=== PATIENT | male | born 2000 | race Two or more races ===

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

== ENCOUNTER 2021-06-28 00:55 | Emergency (ER) | payer MEDICAID ==
[~2021-06-28] VITALS: Ht 180.3 cm; Wt 97.5 kg
[2021-06-28] MEDS ORDERED: KETOROLAC TROMETH 30 MG/ML 1ML VIAL IM ONE (05:30)
[2021-06-28] MEDS ORDERED: IBUP800T27 PO (05:36)
[2021-06-28 05:39] VITALS: BP 131/86
== END 2021-06-28 06:43 | disposition home or self-care (01) ==
LOC: ER 00:55
DX: M79.674 Pain in right toe(s) (principal); Z79.1 Long term (current) use of non-steroidal anti-inflammatories (NSAID); W22.8XXA Striking against or struck by other objects, initial encounter; Y93.89 Activity, other specified; Y92.89 Other specified places as the place of occurrence of the external cause; Y99.8 Other external cause status
CPT/HCPCS: 73630; 96372; 99283; J1885

== ENCOUNTER 2021-11-26 21:01 | Emergency (ER) | payer MEDICAID ==
[~2021-11-26] VITALS: Ht 182.9 cm; Wt 93.6 kg
[~2021-11-26 21:01] MED LIST: IBUP800T27 PO
[2021-11-26 22:17] VITALS: BP 128/82
[2021-11-26] MEDS ORDERED: PROM1SOL4 PO (23:00)
[2021-11-26] MEDS ORDERED: IBUP800T26 PO (23:00)
[2021-11-26] MEDS ORDERED: ALBUAER3 IN (23:00)
== END 2021-11-26 23:04 | disposition home or self-care (01) ==
LOC: ER 21:01
DX: U07.1 COVID-19 (principal); Z79.1 Long term (current) use of non-steroidal anti-inflammatories (NSAID)
CPT/HCPCS: 36415

== ENCOUNTER 2022-03-16 17:45 | Emergency (ER) | payer MEDICAID, OTHER ==
[~2022-03-16] VITALS: Ht 180.3 cm; Wt 103.5 kg
[~2022-03-16 17:45] MED LIST changes: +ALBUAER3 IN; +IBUP800T26 PO; +PROM1SOL4 PO
[2022-03-16 18:37] VITALS: BP 130/75
[2022-03-16 19:32] LABS: Basophils # (auto) 0.1 10 ^3/uL (0-0.2); Basophils % (auto) 0.8 % (0.0-2.0); Eosinophils # (auto) 0.1 10 ^3/uL (0-0.8); Eosinophils % (auto) 1.4 % (0.0-7.0); Hematocrit 44.3 % (41.0-53.0); Hemoglobin 14.8 g/dL (13.5-17.5); Lymphocytes # (auto) 2.6 10 ^3/uL (0.4-5.4); Lymphocytes % (auto) 31.4 % (10.0-50.0); Mean Corpuscular Hemoglobin 28.5 pg (28.0-32.0); Mean Corpuscular Hgb Conc. 33.4 g/dL (32.0-36.0); Mean Corpuscular Volume 85.3 fL (80.0-100.0); Monocytes # (auto) 0.7 10 ^3/uL (0-1.3); Monocytes % (auto) 7.8 % (0.0-12.0); Neutrophils # (auto) 4.9 10 ^3/uL (1.6-8.6); Neutrophils % (auto) 58.6 % (37.0-80.0); Nucleated Red Blood Cells % 0.1 %; Red Cell Distribution Width 14.7 % (11.8-14.3); White Blood Cell 8.4 10^3/uL (4.4-10.8)
[2022-03-16 19:33] LABS: Urine Bacteria NONE SEEN /hpf (None Seen); Urine Blood Negative /uL (Negative); Urine Mucus FEW (None Seen); Urine Specific Gravity 1.023 (1.001-1.035); Urine WBC <1 /hpf (0 - 3)
[2022-03-16 20:06] LABS: Albumin 4.6 g/dL (3.4-5.0); BUN/Creatinine Ratio 11.1; Calcium 9.5 mg/dL (8.5-10.1); Potassium 3.9 mmol/L (3.5-5.1)
[2022-03-16 20:09] LABS: Bilirubin, Total 0.5 mg/dL (0.2-1.0); Total Protein 8.1 g/dL (6.4-8.2)
[2022-03-16] MEDS ORDERED: ACETAMINOPHEN 500 MG TAB PO ONE (20:45)
== END 2022-03-16 20:58 | disposition home or self-care (01) ==
LOC: ER 17:45
DX: K31.4 Gastric diverticulum (principal); R10.31 Right lower quadrant pain; Z79.899 Other long term (current) drug therapy
CPT/HCPCS: 36415; 74176; 80053; 81001; 83690; 85025; 87086

== ENCOUNTER 2022-06-23 20:23 | Emergency (ER) | payer MEDICAID ==
[~2022-06-23] VITALS: Ht 180.3 cm; Wt 100.0 kg
[2022-06-23 20:54] LABS: Basophils # (auto) 0.1 10 ^3/uL (0-0.2); Basophils % (auto) 0.8 % (0.0-2.0); Eosinophils # (auto) 0.1 10 ^3/uL (0-0.8); Eosinophils % (auto) 1.1 % (0.0-7.0); Hematocrit 44.8 % (41.0-53.0); Hemoglobin 15.1 g/dL (13.5-17.5); Lymphocytes # (auto) 2.4 10 ^3/uL (0.4-5.4); Lymphocytes % (auto) 30.7 % (10.0-50.0); Mean Corpuscular Hemoglobin 28.6 pg (28.0-32.0); Mean Corpuscular Hgb Conc. 33.6 g/dL (32.0-36.0); Mean Corpuscular Volume 85.1 fL (80.0-100.0); Monocytes # (auto) 0.6 10 ^3/uL (0-1.3); Monocytes % (auto) 8.1 % (0.0-12.0); Neutrophils # (auto) 4.6 10 ^3/uL (1.6-8.6); Neutrophils % (auto) 59.3 % (37.0-80.0); Nucleated Red Blood Cells % 0.3 %; Red Blood Cells 5.26 10^6/uL (4.5-5.90); Red Cell Distribution Width 14.5 % (11.8-14.3); White Blood Cell 7.7 10^3/uL (4.4-10.8)
[2022-06-23 21:23] LABS: Albumin 4.3 g/dL (3.4-5.0); Calcium 9.5 mg/dL (8.5-10.1); Potassium 3.8 mmol/L (3.5-5.1)
[2022-06-23 21:26] LABS: BUN/Creatinine Ratio 13.4; Bilirubin, Total 0.4 mg/dL (0.2-1.0); Total Protein 8.1 g/dL (6.4-8.2)
[2022-06-24] MEDS ORDERED: PRED20TA2 PO (02:33)
[2022-06-24] MEDS ORDERED: ALBUAER3 IN (02:33)
[2022-06-24 02:45] VITALS: BP 118/73
== END 2022-06-24 02:48 | disposition home or self-care (01) ==
LOC: ER 20:23
DX: R07.89 Other chest pain (principal); J45.909 Unspecified asthma, uncomplicated; Z79.1 Long term (current) use of non-steroidal anti-inflammatories (NSAID); Z79.899 Other long term (current) drug therapy
CPT/HCPCS: 36415; 71046; 80053; 84484; 85025; 93005

== ENCOUNTER 2023-07-31 22:31 | Emergency (ER) | payer MEDICAID ==
[~2023-07-31] VITALS: Ht 180.3 cm; Wt 100.5 kg
[~2023-07-31 22:31] MED LIST changes: +IBUP-1455 PO; +IBUP-1456 PO; -IBUP800T26 PO; -IBUP800T27 PO; +PRED20TA2 PO
[2023-08-01] MEDS ORDERED: FLUORESCEIN SOD OPTH TEST STRIP LEFTEYE ONE
[2023-08-01] MEDS ORDERED: TETRACAINE HCL 0.5% OPTH(EYE) SOLN 4ML LEFTEYE ONE
[2023-08-01 00:22] VITALS: BP 138/87; PULSE 76; RESP 18; TEMP 98.6; O2SAT 97
[2023-08-01] MEDS ORDERED: CEPH500C PO (00:25)
[2023-08-01] MEDS ORDERED: MUPI2OIN2 EX (00:25)
[2023-08-01] MEDS: NEOMYCIN-BACITRACIN-POLYM UNITDOSE PKG TOP OINT TOP ONE (00:30)
[2023-08-01] MEDS: CEPHALEXIN 250 MG CAP PO ONE (00:30)
[2023-08-01] MEDS: TETANUS-DIPTH-ACEL PERTUSSIS 0.5ML SYR Tdap IM ONE (00:31)
== END 2023-08-01 00:41 | disposition home or self-care (01) ==
LOC: ER 22:31
DX: T20.16XA Burn of first degree of forehead and cheek, initial encounter (principal); J45.909 Unspecified asthma, uncomplicated; Z79.1 Long term (current) use of non-steroidal anti-inflammatories (NSAID); Z79.899 Other long term (current) drug therapy; X10.2XXA Contact with fats and cooking oils, initial encounter; Y93.89 Activity, other specified; Y92.89 Other specified places as the place of occurrence of the external cause; Y99.8 Other external cause status
CPT/HCPCS: 16000; 90471; 90715

== ENCOUNTER → 2023-08-29 | Outpatient (CLI) | payer MEDICAID ==
[~2023-08-29] MED LIST changes: +CEPH500C PO; +MUPI2OIN2 EX
[2023-08-29 15:43] LABS: Basophils # (auto) 0 10 ^3/uL (0-0.2); Basophils % (auto) 0.7 % (0.0-2.0); Eosinophils # (auto) 0.1 10 ^3/uL (0-0.8); Eosinophils % (auto) 1.7 % (0.0-7.0); Hematocrit 47.7 % (41.0-53.0); Hemoglobin 15.9 g/dL (13.5-17.5); Lymphocytes # (auto) 2.4 10 ^3/uL (0.4-5.4); Mean Corpuscular Hemoglobin 28.4 pg (28.0-32.0); Mean Corpuscular Hgb Conc. 33.3 g/dL (32.0-36.0); Mean Corpuscular Volume 85.3 fL (80.0-100.0); Monocytes # (auto) 0.5 10 ^3/uL (0-1.3); Monocytes % (auto) 7.2 % (0.0-12.0); Neutrophils # (auto) 3.5 10 ^3/uL (1.6-8.6); Neutrophils % (auto) 53.4 % (37.0-80.0); Nucleated Red Blood Cells % 0.3 %; Red Blood Cells 5.59 10^6/uL (4.5-5.90); Red Cell Distribution Width 14.2 % (11.8-14.3); White Blood Cell 6.5 10^3/uL (4.4-10.8)
[2023-08-29 16:38] LABS: Alanine Aminotransferase 18 U/L (7-40); Alkaline Phosphatase 134 U/L (46-116); Anion Gap 5 (5-15); BUN/Creatinine Ratio 9.4 (10.0-20.0); Blood Urea Nitrogen 10 mg/dL (9-23); Calcium 10.5 mg/dL (8.5-10.1); Carbon Dioxide 29 mmol/L (20-30); Chloride 105 mmol/L (98-107); Glucose 83 mg/dL (74-106); Potassium 4.3 mmol/L (3.5-5.1); Sodium 139 mmol/L (136-145); Triglycerides 171 mg/dL (< 150)
[2023-08-29 16:39] LABS: Amylase 40 U/L (30-118); Aspartate Aminotransferase 13 U/L (13-40); LDL Cholesterol 146 mg/dL (< 100)
[2023-08-29 16:40] LABS: Bilirubin, Total 0.7 mg/dL (0.2-1.0); Cholesterol 202 mg/dL (< 200); HDL Cholesterol 36 mg/dL (40-59); Total Protein 8.1 g/dL (5.7-8.2)
[2023-08-29 17:01] LABS: Lipase 39 U/L (12-53)
== END | disposition home or self-care (01) ==
LOC: LAB 14:57
DX: I10 Essential (primary) hypertension (principal); R12 Heartburn; E66.01 Morbid (severe) obesity due to excess calories; R14.0 Abdominal distension (gaseous)
CPT/HCPCS: 36415; 80053; 80061; 82150; 82306; 83690; 84439; 84443; 85025